=== PATIENT | female | born 1985 ===

== ENCOUNTER 2019-09-16 13:49 | Emergency (ER) | payer SELFPAY ==
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
[2019-09-16 14:06] VITALS: BP 135/61
[2019-09-16] MEDS ORDERED: CYCLOBENZAPRINE HCL 10 MG TABLET PO ONE (14:06)
[2019-09-16] MEDS ORDERED: KETOROLAC TROMETHAMINE 60 MG/2 ML SDV IM ONE (14:06)
--- NOTE | 2019-09-16 14:53 | RADIOLOGY REPORT (SQ) ---
EXAM DESCRIPTION: SHOULDER RIGHT 2 OR MORE VIEWS COMPLETED DATE/TIME: 09/16/2019 2:42 pm REASON FOR STUDY: pain and injury COMPARISON: None. NUMBER OF VIEWS: Three views. TECHNIQUE: Internal rotation, external rotation, and Y view images acquired of the right shoulder. LIMITATIONS: None. FINDINGS: MINERALIZATION: Normal. BONES: No acute fracture. No worrisome bone lesions. JOINTS: No dislocation. VISUALIZED LUNGS AND RIBS: No pneumothorax. No rib fracture. SOFT TISSUES: No radiopaque foreign body. OTHER: No other significant finding. IMPRESSION: NEGATIVE STUDY OF THE RIGHT SHOULDER. NO RADIOGRAPHIC EVIDENCE OF ACUTE INJURY. TECHNICAL DOCUMENTATION: JOB ID: [id number] [employer]- All Rights Reserved Reading location - IP/workstation name: [email or web address]
[2019-09-16] MEDS ORDERED: HYDROCODONE/ACETAMINOPHEN 5-325 MG (6 TAB/ER DISP) PO PRN (15:17)
== END 2019-09-16 15:20 | disposition home or self-care (01) ==
LOC: ER 13:49
DX: M25.511 Pain in right shoulder (principal); X50.1XXA Overexertion from prolonged static or awkward postures, initial encounter; Y92.009 Unspecified place in unspecified non-institutional (private) residence as the place of occurrence of the external cause; F17.210 Nicotine dependence, cigarettes, uncomplicated; Z71.6 Tobacco abuse counseling
CPT/HCPCS: 99406; 99283; 96372; 73030; J1885